=== PATIENT | male | born 1955 | race Caucasian/White ===

== ENCOUNTER 2017-11-27 13:22 | Emergency (ER) | payer MEDICAID ==
[~2017-11-27] VITALS: Ht 170.2 cm; Wt 62.4 kg
[2017-11-27 13:57] LABS: BASOPHILS % (AUTO) 0.9 % (0-1); EOSINOPHILS # (AUTO) 0.3 X10'3 (0-0.9); EOSINOPHILS % (AUTO) 5.4 % (0-6); HEMOGLOBIN 14.3 g/dl (14.0-17.9); LYMPHOCYTES # (AUTO) 1.4 X10'3 (1.1-4.8); LYMPHOCYTES % (AUTO) 24.8 % (21-51); MEAN CORPUSCULAR HEMOGLOBIN 30.7 PG (27.0-31.0); MEAN CORPUSCULAR HGB CONC 34.8 % (33.0-36.5); MEAN CORPUSCULAR VOLUME 88.3 FL (78-98); MEAN PLATELET VOLUME 8.3 FL (7.4-10.4); MONOCYTES # (AUTO) 0.6 X10'3 (0-0.9); MONOCYTES % (AUTO) 10.2 % (2-12); NEUTROPHILS # (AUTO) 3.3 X10'3 (1.8-7.7); NEUTROPHILS % (AUTO) 58.7 % (42-75); PLATELET COUNT 178 X10'3 (140-440); RED BLOOD COUNT 4.64 X10'6 (4.70-6.10); RED CELL DISTRIBUTION WIDTH 13.7 % (11.5-14.5); WHITE BLOOD COUNT 5.6 X10'3 (4.5-11.0)
[2017-11-27 14:12] LABS: ALANINE AMINOTRANSFERASE 23 U/L (12-78); ALBUMIN 3.6 G/DL (3.4-5.0); ALBUMIN/GLOBULIN RATIO 1.2 (1.1-1.5); ALKALINE PHOSPHATASE 59 IU/L (46-116); ANION GAP 4 (8-16); ASPARTATE AMINO TRANSFERASE 20 U/L (10-37); BILIRUBIN,TOTAL 0.4 MG/DL (0.1-1.0); BLOOD UREA NITROGEN 9 MG/DL (7-18); BUN/CREATININE RATIO 9.4 (5.4-32.0); CALCIUM 8.8 MG/DL (8.5-10.1); CHLORIDE 105 MMOL/L (99-107); CREATININE 0.96 MG/DL (0.60-1.10); GLUCOSE 103 MG/DL (70-104); POTASSIUM 4.4 MMOL/L (3.5-5.1); SODIUM 138 MMOL/L (135-145); TOTAL CARBON DIOXIDE 29.3 MMOL/L (24-32); TOTAL PROTEIN 6.7 G/DL (6.4-8.2); eGFR 79 ML/MIN
[2017-11-27 14:14] LABS: PARTIAL THROMBOPLASTIN TIME 27 SECONDS (22-32); PROTHROMBIN TIME 10.3 SECONDS (9.0-12.0)
[2017-11-27] MEDS ORDERED: KEN0.1O TP (15:34)
[2017-11-27] MEDS ORDERED: triamcinolone acetonide 0.5% cream 15gm TP ONE (15:40)
[2017-11-27 16:33] VITALS: BP 117/69
== END 2017-11-27 16:36 | disposition home or self-care (01) ==
LOC: ER 13:23
DX: L28.0 Lichen simplex chronicus (principal); H53.10 Unspecified subjective visual disturbances; R42 Dizziness and giddiness; Z85.46 Personal history of malignant neoplasm of prostate; Z79.899 Other long term (current) drug therapy
CPT/HCPCS: 36415; 71045; 80053; 84484; 85025; 85610; 85730; 93005; 99285

== ENCOUNTER 2019-10-16 15:24 | Outpatient (CLI) | payer MEDICAID ==
[~2019-10-16] VITALS: Ht 170.2 cm; Wt 65.8 kg
[2019-10-16] MEDS ORDERED: albuterol 2.5 MG/3 ML nebule NEB ONE (15:55)
== END 2019-10-16 23:35 | disposition home or self-care (01) ==
LOC: RT 15:24
PROVIDERS: ATTEND Family Medicine
DX: R06.02 Shortness of breath (principal); J98.8 Other specified respiratory disorders
CPT/HCPCS: 94060; 94760

== ENCOUNTER 2019-11-01 16:47 | Emergency (ER) | payer MEDICAID ==
[~2019-11-01] VITALS: Ht 170.2 cm; Wt 62.0 kg
[2019-11-01 16:58] VITALS: BP 144/87
--- NOTE | 2019-11-01 18:32 | NUR ---
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
--- NOTE | 2019-11-01 19:01 | NUR ---
PT NOT IN ROOM
--- NOTE | 2019-11-01 19:12 | NUR ---
NOT IN ROOM
== END 2019-11-01 19:13 | disposition left against medical advice (07) ==
LOC: ER 16:47
DX: T30.0 Burn of unspecified body region, unspecified degree (principal); Z53.21 Procedure and treatment not carried out due to patient leaving prior to being seen by health care provider

== ENCOUNTER 2019-11-02 | Emergency (ER) | payer MEDICAID ==
[~2019-11-02] VITALS: Ht 167.6 cm; Wt 64.5 kg
[2019-11-02 01:24] VITALS: BP 113/72
[2019-11-02] MEDS ORDERED: LORazepam 1 MG tablet PO ONE (02:15)
== END 2019-11-02 02:26 | disposition home or self-care (01) ==
LOC: ER
DX: F11.23 Opioid dependence with withdrawal (principal); R10.9 Unspecified abdominal pain; R11.2 Nausea with vomiting, unspecified
CPT/HCPCS: 99283